=== PATIENT | female | born 1975 | race Two or more races ===

== ENCOUNTER → 2017-09-10 | Outpatient (CLI) | payer OTHER | END | disposition home or self-care (01) | LOC: MAMO-SONO 09:30 | DX: Z12.31 Encounter for screening mammogram for malignant neoplasm of breast (principal) ==

== ENCOUNTER 2018-09-15 13:34 | Outpatient (CLI) | payer OTHER | END 2018-09-15 13:40 | disposition home or self-care (01) | LOC: MAMO-SONO 13:34 | DX: N63.10 Unspecified lump in the right breast, unspecified quadrant (principal); N63.20 Unspecified lump in the left breast, unspecified quadrant; Z12.31 Encounter for screening mammogram for malignant neoplasm of breast ==

== ENCOUNTER 2020-01-25 13:11 | Outpatient (CLI) | payer OTHER | END 2020-01-25 13:14 | disposition home or self-care (01) | LOC: MAMO-SONO 13:11 | PROVIDERS: ATTEND Specialist | DX: Z12.31 Encounter for screening mammogram for malignant neoplasm of breast (principal); N63.10 Unspecified lump in the right breast, unspecified quadrant; N63.20 Unspecified lump in the left breast, unspecified quadrant ==

== ENCOUNTER → 2021-05-31 | Outpatient (CLI) | payer OTHER | END | disposition home or self-care (01) | LOC: MAMO-SONO 15:07 | PROVIDERS: ATTEND Specialist | DX: N64.59 Other signs and symptoms in breast (principal); Z12.31 Encounter for screening mammogram for malignant neoplasm of breast ==

== ENCOUNTER → 2022-03-26 | Outpatient (CLI) | payer OTHER | END | disposition home or self-care (01) | LOC: RAD 10:27 | PROVIDERS: ATTEND Emergency Medicine Pediatric Emergency Medicine | DX: M77.30 Calcaneal spur, unspecified foot (principal); M54.50 Low back pain, unspecified; E66.8 Other obesity; R73.09 Other abnormal glucose; R73.01 Impaired fasting glucose ==

== ENCOUNTER 2023-09-16 10:11 | Outpatient (CLI) | payer OTHER | END 2023-09-16 10:17 | disposition home or self-care (01) | LOC: MAMO-SONO 10:11 | PROVIDERS: ATTEND Obstetrics & Gynecology | DX: N64.4 Mastodynia (principal) ==

== ENCOUNTER 2024-09-28 07:35 | Outpatient (CLI) | payer OTHER | END 2024-09-28 07:41 | disposition home or self-care (01) | LOC: MAMO-SONO 07:35 | PROVIDERS: ATTEND Obstetrics & Gynecology | DX: N64.4 Mastodynia (principal) ==